=== PATIENT | male | born 1970 | race Caucasian/White ===

== ENCOUNTER 2024-11-07 16:12 | Emergency (ER) | payer OTHER ==
[2024-11-07] MEDS ORDERED: HYDROMORPHONE HCL 1 MG/ML INJ ONE ×2 (16:28→17:40)
[2024-11-07] MEDS ORDERED: ONDANSETRON 4 MG/2 ML VIAL ONE (16:29)
--- NOTE | 2024-11-07 16:58 | ER ---
Nurse's Notes [facility] Name: Eduard Hernandez Age: 54 yrs Sex: Male : 1970 Arrival Date: 11/07/2024 Time: 16:12 Bed Treatment Private MD: Diagnosis: Displaced trimalleolar fracture of left lower leg, initial encounter for closed fracture-REDUCED Presentation: 11/07 16:22 Chief complaint: EMS states: Fell off surfboard in shallow water and rolled ankle hb inwards, obvious deformity noted to left ankle. Fentanyl 200 mcg and Phenergan 25 mg administered to 20g R hand [employer]CH[employer]. Coronavirus screen: At this time, the client does not indicate any symptoms associated with coronavirus-19. Ebola Screen: No symptoms or risks identified at this time. Initial Sepsis Screen: Does the patient meet any 2 criteria? No. Patient's initial sepsis screen is negative. Does the patient have a suspected source of infection? No. Patient's initial sepsis screen is negative. Risk Assessment: Do you want to hurt yourself or someone else? Patient reports no desire to harm self or others. Onset of symptoms was November 07, 2024. 16:22 Method Of Arrival: EMS: [facility] hb 16:22 Acuity: ALPHONSE 3 hb Historical: - Allergies: 16:24 No Known Allergies; hb - PMHx: 16:24 Hypertension; hb - PSHx: 16:24 None; hb - Immunization history:: Adult Immunizations. - Infectious Disease History:: Denies. - Family history:: not pertinent. - Social history:: Smoking status: Patient denies any tobacco usage or history of. Screenin:00 [facility] ED Fall Risk Assessment (Adult) History of falling in the last 3 months, hb including since admission No falls in past 3 months (0 pts) Confusion or Disorientation No (0 pts) Intoxicated or Sedated No (0 pts) Impaired Gait No (0 pts) Mobility Assist Device Used No (0 pt) Altered Elimination No (0 pt) Score/Fall Risk Level 0 - 2 = Low Risk Oriented to surroundings, Maintained a safe environment, Educated pt \T\ family on fall prevention, incl call for assistance when getting out of bed. Abuse screen: Denies threats or abuse. Denies injuries from another. Nutritional screening: No deficits noted. Tuberculosis screening: No symptoms or risk factors identified. Assessment: 17:00 General: Appears in no apparent distress. uncomfortable, Behavior is calm, cooperative. hb Pain: Pain currently is 7 out of 10 on a pain scale. Neuro: Level of Consciousness is awake, alert, obeys commands, Oriented to person, place, time, situation. 17:00 Cardiovascular: Patient's skin is warm and dry. Respiratory: Respiratory effort is hb even, unlabored, Respiratory pattern is regular, symmetrical. GI: No signs and/or symptoms were reported involving the gastrointestinal system. : No signs and/or symptoms were reported regarding the genitourinary system. EENT: No signs and/or symptoms were reported regarding the EENT system. Derm: Skin is pink, warm \T\ dry. Musculoskeletal: obvious deformity noted to left ankle, PP 3+. 18:00 Reassessment: Patient appears in no apparent distress at this time. Patient and/or hb family updated on plan of care and expected duration. Pain level reassessed. Patient is alert, oriented x 3, equal unlabored respirations, skin warm/dry/pink. Vital Signs: 16:22 BP 146 / 86; Pulse 82; Resp 16; Temp 97.8; Pulse Ox 100% on R/A; Weight 90.72 kg; hb Height 5 ft. 11 in. ; Pain 2/10; 16:22 Body Mass Index 27.89 (90.72 kg, 180.34 cm) hb 16:22 Pain Scale: Adult hb ED Course: 16:19 Patient arrived in ED. hb 16:23 Art Giang MD is Attending Physician. thalia 16:24 Triage completed. hb 16:36 Ankle Left 3 View XRAY In Process Unspecified. EDMS 16:40 1640 called Min for Transfer talked to Dereck Banerjee 1645 Dr. Sandra Wu accepted to [facility] report [phone] [id number] admin approval Dereck Banerjee called [facility] for transfer talked to Estefani. 16:47 Orthoglass splint: Posterior short lleg splint applied on left leg. em1 17:00 No provider procedures requiring assistance completed. Maintain EMS IV. Dressing hb intact. Good blood return noted. Site clean \T\ dry. Gauge \T\ site: 20g R Hand. Flushed with 10 mL NS. 17:00 Patient has correct armband on for positive identification. Bed in low position. Call hb light in reach. Provided Education on: tests, result times. 17:00 Arm band placed on. hb 17:52 Kayla Coley, RN is Primary Nurse. hb 18:11 Patient transferred, IV remains in place. hb Administered Medications: 16:34 Drug: HYDROmorphone IVP 1 mg IVP once Route: IVP; Site: right hand; hb 16:34 Drug: Ondansetron IVP 4 mg IVP once; over 2 minutes Route: IVP; Site: right hand; hb 17:41 Drug: HYDROmorphone IVP 1 mg IVP once Route: IVP; Site: right hand; hb 17:52 Drug: NS 0.9% IV 1000 ml IV at 1000 ml once; to be given as a bolus over 60 minutes hb Route: IV; Rate: 1000 ml; Site: right hand; Medication: 17:00 VIS not applicable for this client. hb Outcome: 16:57 ER care complete, transfer ordered by . thalia 18:11 Transferred by ground EMS to [facility], hb 18:11 Condition: stable 18:11 Discharge instructions given to patient, Instructed on the need for transfer, Demonstrated understanding of instructions, 18:12 Patient left the ED. hb Signatures: Dispatcher [employer] EDMS Art Giang MD MD cha Pinkerton, Leta Chen, Moises em1 Kayla Coley, RN RN hb Corrections: (The following items were deleted from the chart) 16:25 16:24 PMHx: Hyoertension; hb hb 16:34 16:22 Chief complaint: EMS states: Fell off surfboard in shallow water and rolled ankle hb inwards, obvious deformity noted to left ankle. 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
--- NOTE | 2024-11-07 16:58 | EDPHYS ---
Physician Documentation [facility] Name: Eduard Hernandez Age: 54 yrs Sex: Male : 1970 Arrival Date: 11/07/2024 Time: 16:12 Bed Treatment Private MD: ED Physician Art Giang HPI: 11/07 16:54 This 54 yrs old Male presents to ER via EMS with complaints of Ankle Injury. thalia 16:54 The patient presents with decreased range of motion, a deformity, pain. The complaints thalia affect the left ankle, left lateral ankle, left Achilles, left medial ankle and anterior aspect of left ankle. Onset: The symptoms/episode began/occurred just prior to arrival. Context: resulted from a mis-step by the patient. Associated signs and symptoms: The patient has no apparent associated signs or symptoms. Modifying factors: The symptoms are alleviated by nothing, elevation of extremity, the symptoms are aggravated by weight bearing, movement. Severity of symptoms: At their worst the symptoms were moderate, in the emergency department the symptoms are unchanged. The patient has not experienced similar symptoms in the past. Historical: - Allergies: 16:24 No Known Allergies; hb - PMHx: 16:24 Hypertension; hb - PSHx: 16:24 None; hb - Immunization history:: Adult Immunizations. - Infectious Disease History:: Denies. - Family history:: not pertinent. - Social history:: Smoking status: Patient denies any tobacco usage or history of. ROS: 16:54 Constitutional: Negative for fever, chills, and weight loss, Eyes: Negative for injury, thalia pain, redness, and discharge, ENT: Negative for injury, pain, and discharge, Neck: Negative for injury, pain, and swelling, Cardiovascular: Negative for chest pain, palpitations, and edema, Respiratory: Negative for shortness of breath, cough, wheezing, and pleuritic chest pain, Abdomen/GI: Negative for abdominal pain, nausea, vomiting, diarrhea, and constipation, Back: Negative for injury and pain, : Negative for injury, bleeding, discharge, and swelling, Skin: Negative for injury, rash, and discoloration, Neuro: Negative for headache, weakness, numbness, tingling, and seizure, 16:54 MS/extremity: Positive for decreased range of motion, deformity, pain, swelling, tenderness, of the left lateral ankle, left Achilles, left medial ankle and anterior aspect of left ankle, Exam: 16:54 Constitutional: This is a well developed, well nourished patient who is awake, alert, thalia and in no acute distress. Head/Face: Normocephalic, atraumatic. Eyes: Pupils equal round and reactive to light, extra-ocular motions intact. Lids and lashes normal. Conjunctiva and sclera are non-icteric and not injected. Cornea within normal limits. Periorbital areas with no swelling, redness, or edema. ENT: Nares patent. No nasal discharge, no septal abnormalities noted. Tympanic membranes are normal and external auditory canals are clear. Oropharynx with no redness, swelling, or masses, exudates, or evidence of obstruction, uvula midline. Mucous membranes moist. Neck: Trachea midline, no thyromegaly or masses palpated, and no cervical lymphadenopathy. Supple, full range of motion without nuchal rigidity, or vertebral point tenderness. No Meningismus. Chest/axilla: Normal chest wall appearance and motion. Nontender with no deformity. No lesions are appreciated. Cardiovascular: Regular rate and rhythm with a normal S1 and S2. No gallops, murmurs, or rubs. Normal PMI, no JVD. No pulse deficits. Respiratory: Lungs have equal breath sounds bilaterally, clear to auscultation and percussion. No rales, rhonchi or wheezes noted. No increased work of breathing, no retractions or nasal flaring. Abdomen/GI: Soft, non-tender, with normal bowel sounds. No distension or tympany. No guarding or rebound. No evidence of tenderness throughout. Back: No spinal tenderness. No costovertebral tenderness. Full range of motion. Skin: Warm, dry with normal turgor. Normal color with no rashes, no lesions, and no evidence of cellulitis. Neuro: Awake and alert, GCS 15, oriented to person, place, time, and situation. Cranial nerves II-XII grossly intact. Motor strength 5/5 in all extremities. Sensory grossly intact. Cerebellar exam normal. Normal gait. Psych: Awake, alert, with orientation to person, place and time. Behavior, mood, and affect are within normal limits. 16:54 Musculoskeletal/extremity: Extremities: grossly normal except: deformity, pain, swelling, tenderness, ROM: limited active range of motion due to pain, limited passive range of motion due to pain, Circulation is intact in all extremities. Sensation intact. Compartment Syndrome exam of affected extremity: is normal. Weight bearing: is unable to bear weight, Vital Signs: 16:22 BP 146 / 86; Pulse 82; Resp 16; Temp 97.8; Pulse Ox 100% on R/A; Weight 90.72 kg; hb Height 5 ft. 11 in. ; Pain 2/10; 16:22 Body Mass Index 27.89 (90.72 kg, 180.34 cm) hb 16:22 Pain Scale: Adult hb MDM: 16:23 Medical Screening Exam initiated [facility] 11/07 16:36 Order name: CBC with Diff [facility] 11/07 16:36 Order name: CMP [facility] 11/07 16:36 Order name: PT-INR [facility] 11/07 16:22 Order name: Ankle Left 3 View XRAY 11/07 16:36 Order name: Ice pack [facility] 11/07 16:37 Order name: NPO; Complete Time: 16:47 thalia Administered Medications: 16:34 Drug: HYDROmorphone IVP 1 mg IVP once Route: IVP; Site: right hand; hb 16:34 Drug: Ondansetron IVP 4 mg IVP once; over 2 minutes Route: IVP; Site: right hand; hb 17:41 Drug: HYDROmorphone IVP 1 mg IVP once Route: IVP; Site: right hand; hb 17:52 Drug: NS 0.9% IV 1000 ml IV at 1000 ml once; to be given as a bolus over 60 minutes hb Route: IV; Rate: 1000 ml; Site: right hand; Disposition Summary: 11/07/24 16:57 Transfer Ordered Notes: Transfer Location: [facility] thalia Reason: Higher level of care thalia Condition: Stable thalia Problem: new thalia Symptoms: have improved thalia Accepting Physician: to [facility] [place], DR DOMINICK ROSADO(11/07/24 18:12) hb Diagnosis - Displaced trimalleolar fracture of left lower leg, initial encounter for closed thalia fracture - REDUCED Forms: - Medication Reconciliation Form thalia - SBAR form thalia Signatures: Dispatcher [employer] Art Orourke MD MD cha Baxter, Heather, RN RN hb Corrections: (The following items were deleted from the chart) 16: 16:24 PMHx: Hyoertension; hb hb 18:12 16:57 to [facility] [place], DR DOMINICK morales
[2024-11-07 17:16] LABS: Absolute Lymphocytes (CBC) 1.5 K/uL (0.7-4.9); Absolute Monocytes 0.5 K/uL (0.1-1.3); Absolute Neutrophil 6.1 K/uL (1.8-8.0); Basophils % 0.6 % (0-1.3); Eosinophils % 0.6 % (0-4.4); Hematocrit 45.8 % (39.6-49.0); Hemoglobin 15.7 g/dL (13.6-17.9); Lymphocytes % 18.7 % (15.3-44.8); MCH 30.2 pg (27.0-35.0); MCHC 34.3 g/dL (32.0-36.0); MCV 88.2 fL (80-100); MPV 7.7 fL (7.6-11.3); Monocytes % 5.8 % (3.3-12.3); Neutrophils % 74.3 % (41.7-73.7); Nucleated Red Blood Cells % 0.2 % (0-0); Platelets 159 thou/uL (152-406); RBC Red Blood Cell Count 5.19 M/uL (4.33-5.43); Red Cell Distribution Width 13.6 % (12.1-15.2)
[2024-11-07 17:18] LABS: PT Prothrombin Time 11.8 SECONDS (10-13.0); Protime INR 1.04
[2024-11-07 17:28] LABS: Albumin 3.9 g/dL (3.4-5.0); Albumin/Globulin Ratio 1.3 (1.1-1.8); Anion Gap 9.7 mEq/L (5.0-15.0); Bilirubin Total 0.7 mg/dL (0.2-1.0); Globulin 3.1 g/dL (2.3-3.5); Potassium 3.7 mEq/L (3.5-5.1)
[2024-11-07] MEDS ORDERED: NA CHLORIDE 0.9% 1,000 ML ONE (17:45)
[2024-11-07 18:20] VITALS: BP 146/86; TEMP 97.8; O2SAT 100
--- NOTE | 2024-11-07 18:54 | RAD REPORT ---
EXAMINATION: XR Ankle Left 3 View CLINICAL INDICATION: Male, 54 years old. [facility] MAIN DEFORMITY Bed Name: Treatment TECHNIQUE: 3 view radiographs of the left ankle were obtained. COMPARISON: No prior exam. FINDINGS: Nondisplaced and mildly comminuted oblique lateral malleolus fracture. Mildly displaced fra cture at the base of the medial malleolus as well. Questionable small posterior malleolus fracture component. Subjective mild widening of the distal tibiofibular syndesmosis. Soft tissue swelling abou t the ankle. Large calcaneal spur. IMPRESSION: Lateral and medial malleolus fractures, and questionable small posterior malleolus fracture component . Subjective widening of the distal tibiofibular syndesmosis, for which correlation with weightbearing radiographs would be helpful to evaluate for instability.
== END 2024-11-07 18:12 | disposition short-term general hospital (02) ==
LOC: ER 16:12
PROC: 2W3RX1Z Immobilization of Left Lower Leg using Splint (ICD-10-PCS; principal; 2024-11-07)
DX: S82.852A Displaced trimalleolar fracture of left lower leg, initial encounter for closed fracture (principal)
CPT/HCPCS: 85025; 36415; 85610; 80053; 73610; 96375; 96374; 99285; 29515; J1171 ×2; J2405; J7030